=== PATIENT | female | born 2000 | race Caucasian/White ===

== ENCOUNTER → 2019-09-03 09:28 | Emergency (ER) | payer OTHER ==
[~2019-09-03 09:28] MED LIST: Ondansetron ODT TAB* 4 MG PO ONE
--- NOTE | 2019-09-03 09:48 | ED ---
Abdominal Pain/Female - HPI Summary HPI Summary: 19-year-old female with no significant past medical history presents to the emergency department today complaining of right lower quadrant pain for 3 days. She states her pain is a "crampy" 5 out of 10 pain in the right lower quadrant which is made worse with movement and bending over. She states she's never had this pain before and that the pain has slowly gotten worse over the last 3 days since it began. She endorses associated nausea but denies vomiting , diarrhea, fever, vaginal discharge, vaginal bleeding. Last period" 2 weeks ago and regular". Family history and surgical history noncontributory. Patient denies recent alcohol use or recreational drug use. - History of Current Complaint Chief Complaint: EDAbdPain Stated Complaint: RIGHT SIDE ABDOMINAL PAIN AND NAUSEA PER PT Time Seen by Provider: 09/03/19 09:34 Hx Obtained From: Patient Onset/Duration: Gradual Onset, Lasting Days Timing: Constant Severity Initially: Mild Severity Currently: Moderate Pain Intensity: 5 Pain Scale Used: 0-10 Numeric Location: Discrete At: RLQ Radiates: No Character: Cramping Aggravating Factor(s): Movement Alleviating Factor(s): Position Associated Signs and Symptoms: Positive: Nausea. Negative: Fever, Chest Pain, Constipation, Blood in Stool, Urinary Symptoms, Vaginal Bleeding, Vaginal Discharge, Vomiting, Diarrhea Allergies/Adverse Reactions: Allergies Allergy/AdvReac Type Severity Reaction Status Date / Time No Known Allergies Allergy Verified 09/03/19 09:32 PMH/Surg Hx/FS Hx/Imm Hx Infectious Disease History: No Infectious Disease History: Denies: Traveled Outside the [place] in Last 30 Days Review of Systems Constitutional: Negative Eyes: Negative ENT: Negative Cardiovascular: Negative Respiratory: Negative Positive: Abdominal Pain, Nausea. Negative: Vomiting, Diarrhea Genitourinary: Negative Musculoskeletal: Negative Skin: Negative Neurological: Negative Psychological: Normal All Other Systems Reviewed And Are Negative: Yes Physical Exam - Summary Physical Exam Summary: Inspection of the abdomen reveals no ecchymosis or masses. Auscultation reveals normal active bowel sounds. Palpation reveals mild tenderness in the right lower quadrant. Negative Marroquin's, McBurney's, psoas, obturator, Rovsing sign. There is no evidence of peritonitis or guarding. Triage Information Reviewed: Yes Vital Signs On Initial Exam: Initial Vitals Temp Pulse Resp BP Pulse Ox 99.1 F 63 18 128/89 99 09/03/19 09:29 09/03/19 09:29 09/03/19 09:29 09/03/19 09:29 09/03/19 09:29 Vital Signs Reviewed: Yes Appearance: Positive: Well-Appearing, No Pain Distress, Well-Nourished Skin: Positive: Warm, Skin Color Reflects Adequate Perfusion Eyes: Positive: EOMI, LB ENT: Positive: Normal ENT inspection, Hearing grossly normal Respiratory/Lung Sounds: Positive: Clear to Auscultation, Breath Sounds Present Cardiovascular: Positive: RRR, S1, S2 Abdomen Description: Positive: Soft. Negative: CVA Tenderness (R), CVA Tenderness (L), Distended, Guarding Bowel Sounds: Positive: Present Musculoskeletal: Positive: Strength/ROM Intact Neurological: Positive: Sensory/Motor Intact, Alert, Oriented to Person Place, Time, Normal Gait, Facial Symmetry, Speech Normal Psychiatric: Positive: Normal AVPU Assessment: Alert Procedures - Sedation Patient Received Moderate/Deep Sedation with Procedure: No Diagnostics - Vital Signs Vital Signs Temp Pulse Resp BP Pulse Ox 09/03/19 09:29 99.1 F 63 18 128/89 99 - Laboratory Result Diagrams: 09/03/19 10:01 09/03/19 10:01 Lab Statement: Any lab studies that have been ordered have been reviewed, and results considered in the medical decision making process. Abdominal Pain Fem Course/Dx - Course Course Of Treatment: Patient was evaluated in the emergency department today for right lower quadrant abdominal pain. Vitals noted and stable. Laboratory studies were done which resulted within normal limits with no leukocytosis or signs of infection. Urinalysis is negative for UTI. Transvaginal ultrasound was done to investigate possible appendicitis or ovarian etiology. Ultrasound returned showing no uterine or ovarian abnormalities. Due to the patient's physical exam and laboratory studies appendicitis was considered but thought to be very unlikely. This is discussed with the patient as well as the risks and benefits of CT scan imaging to rule out appendicitis. Patient agreed to wave CT imaging at this time and to return to the emergency department immediately if she develops any new or worsening symptoms. She is to follow-up with her primary care physician in 3 days for further evaluation and management. - Diagnoses Differential Diagnosis: Positive: Appendicitis, Ovarian Cyst, Urinary Tract Infection Provider Diagnoses: Abdominal pain Discharge ED - Sign-Out/Discharge Documenting (check all that apply): Patient Departure - Discharge Plan Condition: Stable Disposition: HOME Patient Education Materials: Acute Abdominal Pain (ED) Referrals: No Primary Care Phys,NOPCP [Primary Care Provider] - Care [facility] [Outside] Additional Instructions: You were seen in the emergency department today for abdominal pain. There is no evidence that your symptoms are due to a life-threatening or infectious process requiring intervention at this time. Please follow up with your primary care provider or environmental protection geologist in 3 days for further evaluation and management of your symptoms. Please return to the emergency department immediately if you develop any new or worsening symptoms. We discussed the risks and benefits of CT imaging and you agreed to return to the emergency department immediately if you developed any new or worsening symptoms - Billing Disposition and Condition Condition: STABLE Disposition: Home - Attestation Statements Provider Attestation: I have seen the patient with the ALBARO and agree with the plan and documentation below except as noted: tender feels of the right lower quadrant abdominal pain. Labs notable for minimal leukocytosis, normal CRP. Afebrile. Transvaginal ultrasound without abnormality. PA had discussion with patient about CT, patient opted to weight secondary to low suspicion for appendicitis. Cristal Andrade MD
[2019-09-03 10:09] LABS: ABS Lymphocytes 2.1 10^3/ul (1.0-4.8); ABS Monocytes 0.3 10^3/ul (0-0.8); ABS Neutrophils 5.5 10^3/ul (1.5-7.7); Eosinophil % 0.4 %; Hematocrit 41 % (35-47); Lymphocyte % 26.5 %; Mean Corpuscular HGB Conc 34 g/dL (31-36); Mean Corpuscular Hemoglobin 30 pg (27-31); Mean Corpuscular Volume 88 fL (80-97); Mean Platelet Volume 8.2 fL (7.4-10.4); Platelet Count 309 10^3/uL (150-450); Red Blood Count 4.61 10^6 /uL (3.70-4.87); Red Cell Distribution Width 12 % (10-15)
[2019-09-03 10:54] LABS: Albumin 4.5 g/dL (3.2-5.2); Albumin/Globulin Ratio 1.5 (1-3); BUN/Creatinine Ratio 18.1 (8-20); C Reactive Protein 5.39 mg/L (<8.01); Calcium 9.8 mg/dL (8.6-10.3); EGFR Non-African American 103.3 (>60); Potassium 4.1 mmol/L (3.5-5.0); Total Bilirubin 0.7 mg/dL (0.2-1.0); Total Protein 7.5 g/dL (6.4-8.9)
[2019-09-03 11:21] LABS: Urine Appearance Clear; Urine Bilirubin Negative (Negative); Urine Blood 1+ (Negative); Urine Color Straw; Urine Glucose Negative (Negative); Urine Ketones Negative (Negative); Urine Nitrite Negative (Negative); Urine Protein Negative (Negative); Urine Specific Gravity 1.008 (1.010-1.030); Urine Urobilinogen Negative (Negative)
[2019-09-03 11:23] LABS: Urine Bacteria 1+ (Absent); Urine Red Blood Cell 2+(6-10/hpf) (Absent); Urine Squamous Epithelial Cell Present (Absent); Urine White Blood Cell 1+(6-10/hpf) (Absent)
[2019-09-03 12:17] VITALS: BP 143/87
== END | disposition home or self-care (01) ==
LOC: ED 09:28
DX: R10.9 Unspecified abdominal pain (principal)
CPT/HCPCS: 36415; 76856; 80053; 81003; 81015; 83690; 85025; 86140; 87086; 99283; A9270-GY